=== PATIENT | male | born 1955 | race Caucasian/White ===

== ENCOUNTER 2021-07-08 10:20 | Outpatient (CLI) | payer MEDICARE | END 2021-07-08 10:21 | disposition home or self-care (01) | LOC: BICRAD 10:20 | PROVIDERS: ATTEND Family Medicine | DX: M25.512 Pain in left shoulder (principal); M19.012 Primary osteoarthritis, left shoulder ==

== ENCOUNTER 2023-09-12 00:09 | Inpatient (IN) | payer OTHER ==
[2023-09-12 02:43] VITALS: BMI 28.0
[2023-09-12] MEDS ORDERED: Calcium Carbonate 500 MG ChewTAB PO PRN (02:54)
[2023-09-12] MEDS ORDERED: Ondansetron ODT 4 MG TAB PO PRN (02:54)
[2023-09-12] MEDS: Acetaminophen 325 MG TAB PO PRN ×2 (03:14→16:52)
[2023-09-12] MEDS ORDERED: Lactated Ringer's 1,000 ML IV SCH (03:15)
[2023-09-12] MEDS ORDERED: Piperacillin/Tazobactam 3.375 GM in Sodium Chloride 0.9% 100 ML IVPB SCH (03:30)
[2023-09-12] MEDS ORDERED: Lactated Ringer's 500 ML IV SCH (03:30)
[2023-09-12] MEDS ORDERED: Dextrose 5% in Water 1,000 ML IV PRN (04:00)
[2023-09-12] MEDS ORDERED: Dextrose 50% Abboject 50 ML SYRINGE SLOW IVP PRN (04:00)
[2023-09-12] MEDS ORDERED: Glucagon 1 MG/ML KIT IM PRN (04:00)
[2023-09-12] MEDS ORDERED: HumaLOG 300 UNITS/3 ML VIAL SC PRN ×2 (04:00)
[2023-09-12 05:41] LABS: #Monocytes 0.3 thou/uL (0.11-0.59); #Neutrophils 9.6 thou/uL (1.40-6.50); %Basophils 0.1 % (0.0-1.0); %Lymphocytes 7.3 % (21.0-51.0); %Monocytes 3.1 % (0.0-10.0); %Neutrophils 88.9 % (42.0-75.0); Hematocrit 32.5 % (42.0-52.0); Hemoglobin 10.8 g/dL (14.0-18.0); Mean Corpuscular HGB CONC 33.2 g/dL (32.0-36.0); Mean Corpuscular Hemoglobin 28.6 pg (27.0-31.0); Mean Corpuscular Volume 86.2 fl (78.0-98.0); Mean Platelet Volume 11.7 fL (7.4-10.4); Platelet Count 132 10x3/uL (130-400); RBC Distribution Width 15.5 % (11.5-14.5); Red Blood Cell (RBC) Count 3.77 mill/uL (4.70-6.10); White Blood Cell (WBC) Count 10.8 10x3/uL (4.8-10.8)
[2023-09-12 05:45] LABS: Anion Gap 14 mmol/L (10-20); BUN (Urea Nitrogen) 12 mg/dL (8.4-25.7); Calc. Creatinine Clearance 100 mL/min (70-130); Carbon Dioxide 25 mmol/L (23-31); Chloride 102 mmol/L (98-107); Estimated GFR 84; Glucose 133 mg/dL (80-115); Potassium 3.5 mmol/L (3.5-5.1); Sodium 137 mmol/L (136-145)
[2023-09-12 05:57] LABS: Lactic Acid 1.6 mmol/L (0.5-2.2)
[2023-09-12 05:59] LABS: Troponin I 0.066 ng/mL (< 0.028)
[2023-09-12] MEDS ORDERED: Piperacillin/Tazobactam 4.5 GM in Sodium Chloride 0.9% 100 ML IVPB SCH (06:00)
[2023-09-12] MEDS: Vancomycin 1 GM in Premix 1 BAG IVPB SCH ×2 (06:19→17:40)
[2023-09-12 08:41] LABS: Troponin I 0.057 ng/mL (< 0.028)
[2023-09-12] MEDS: Gemfibrozil 600 MG TAB PO SCH ×2 (08:48→20:59)
[2023-09-12] MEDS: Furosemide 20 MG TAB PO SCH (08:48)
[2023-09-12] MEDS: DULoxetine 60 MG CAP PO SCH (08:48)
[2023-09-12] MEDS: risperiDONE 0.25 MG TAB PO SCH (08:48)
[2023-09-12] MEDS: Multivit, Therapeutic 1 TAB PO SCH (08:49)
[2023-09-12] MEDS: Aspirin Chewable 81 MG TAB PO SCH (08:49)
[2023-09-12] MEDS: metFORMIN 500 MG TAB PO SCH ×2 (08:49→20:59)
[2023-09-12] MEDS: Gabapentin 300 MG CAP PO SCH ×3 (08:50→20:59)
[2023-09-12] MEDS: Piperacillin/Tazobactam 3.375 GM in Sodium Chloride 0.9% 100 ML IVPB SCH ×2 (08:50→15:04)
[2023-09-12] MEDS: Famotidine 20 MG TAB PO SCH ×2 (08:50→20:59)
[2023-09-12] MEDS: CO Q-10 CAPSULE 50 MG PO SCH (08:59)
[2023-09-12] MEDS ORDERED: rOPINIRole HCl 0.5 MG TAB PO SCH (09:00)
[2023-09-12] MEDS ORDERED: Vancomycin (BATCH) 1.5 GM in Premix 1 BAG IVPB SCH (09:00)
[2023-09-12] MEDS ORDERED: Midodrine HCl 5 MG TAB PO SCH (10:00)
[2023-09-12] MEDS: Midodrine HCl 5 MG TAB PO SCH ×2 (15:04→20:58)
[2023-09-12] MEDS: rOPINIRole HCl 0.5 MG TAB PO SCH ×2 (15:04→20:58)
[2023-09-12] MEDS: Atorvastatin Calcium 20 MG TAB PO SCH (20:59)
[2023-09-13] MEDS: Piperacillin/Tazobactam 3.375 GM in Sodium Chloride 0.9% 100 ML IVPB SCH ×4 (00:41→23:19)
[2023-09-13 06:04] LABS: #Eosinphils 0.1 thou/uL (0.0-0.7); #Monocytes 0.8 thou/uL (0.11-0.59); #Neutrophils 6.6 thou/uL (1.40-6.50); %Basophils 0.4 % (0.0-1.0); %Lymphocytes 17.4 % (21.0-51.0); %Monocytes 8.9 % (0.0-10.0); Hematocrit 34.4 % (42.0-52.0); Hemoglobin 11.3 g/dL (14.0-18.0); Mean Corpuscular HGB CONC 32.8 g/dL (32.0-36.0); Mean Corpuscular Hemoglobin 28.4 pg (27.0-31.0); Mean Corpuscular Volume 86.4 fl (78.0-98.0); Platelet Count 135 10x3/uL (130-400); RBC Distribution Width 15.8 % (11.5-14.5); Red Blood Cell (RBC) Count 3.98 mill/uL (4.70-6.10); White Blood Cell (WBC) Count 9.2 10x3/uL (4.8-10.8)
[2023-09-13 06:09] LABS: Vancomycin, Trough 8.6 ug/mL
[2023-09-13 06:27] LABS: Anion Gap 14 mmol/L (10-20); BUN (Urea Nitrogen) 16 mg/dL (8.4-25.7); CRP (Inflammatory) 27.42 mg/dL (= or < 0.5); Calc. Creatinine Clearance 98 mL/min (70-130); Carbon Dioxide 26 mmol/L (23-31); Chloride 100 mmol/L (98-107); Estimated GFR 82; Glucose 133 mg/dL (80-115); Magnesium 1.7 mg/dL (1.6-2.6); Potassium 3.7 mmol/L (3.5-5.1); Sodium 136 mmol/L (136-145)
[2023-09-13] MEDS ORDERED: Vancomycin (BATCH) 1.5 GM in Premix 1 BAG IVPB SCH (06:30)
[2023-09-13] MEDS: CO Q-10 CAPSULE 50 MG PO SCH (08:40)
[2023-09-13] MEDS: Gabapentin 300 MG CAP PO SCH ×3 (08:41→20:55)
[2023-09-13] MEDS: Furosemide 20 MG TAB PO SCH (08:41)
[2023-09-13] MEDS: Famotidine 20 MG TAB PO SCH ×2 (08:41→20:54)
[2023-09-13] MEDS: DULoxetine 60 MG CAP PO SCH (08:41)
[2023-09-13] MEDS: Potassium Chloride 10 MEQ TAB PO SCH (08:41)
[2023-09-13] MEDS: metFORMIN 500 MG TAB PO SCH ×2 (08:41→20:55)
[2023-09-13] MEDS: risperiDONE 0.25 MG TAB PO SCH (08:41)
[2023-09-13] MEDS: Gemfibrozil 600 MG TAB PO SCH ×2 (08:41→20:55)
[2023-09-13] MEDS: rOPINIRole HCl 0.5 MG TAB PO SCH ×3 (08:41→20:55)
[2023-09-13] MEDS: Aspirin Chewable 81 MG TAB PO SCH (08:41)
[2023-09-13] MEDS: Multivit, Therapeutic 1 TAB PO SCH (08:41)
[2023-09-13] MEDS: Midodrine HCl 5 MG TAB PO SCH ×3 (08:45→20:54)
[2023-09-13] MEDS ORDERED: Diazepam 10 MG/2 ML SYRINGE IVP PRN ×2 (09:00→11:55)
[2023-09-13] MEDS: Vancomycin 1 GM in Premix 1 BAG IVPB SCH (14:48)
[2023-09-13] MEDS: Vancomycin (BATCH) 1.5 GM in Premix 1 BAG IVPB SCH (18:32)
[2023-09-13] MEDS: Atorvastatin Calcium 20 MG TAB PO SCH (20:54)
[2023-09-14] MEDS: Vancomycin (BATCH) 1.5 GM in Premix 1 BAG IVPB SCH ×2 (05:37→17:45)
[2023-09-14 06:19] LABS: #Eosinphils 0.4 thou/uL (0.0-0.7); #Monocytes 0.7 thou/uL (0.11-0.59); #Neutrophils 3.6 thou/uL (1.40-6.50); %Basophils 0.4 % (0.0-1.0); %Eosinophils 6.2 % (0.0-10.0); %Lymphocytes 28.7 % (21.0-51.0); %Monocytes 10.5 % (0.0-10.0); %Neutrophils 53.9 % (42.0-75.0); Hematocrit 33.6 % (42.0-52.0); Hemoglobin 10.9 g/dL (14.0-18.0); Mean Corpuscular HGB CONC 32.4 g/dL (32.0-36.0); Mean Corpuscular Hemoglobin 27.7 pg (27.0-31.0); Mean Corpuscular Volume 85.5 fl (78.0-98.0); Mean Platelet Volume 11.8 fL (7.4-10.4); Platelet Count 139 10x3/uL (130-400); RBC Distribution Width 15.5 % (11.5-14.5); Red Blood Cell (RBC) Count 3.93 mill/uL (4.70-6.10); White Blood Cell (WBC) Count 6.8 10x3/uL (4.8-10.8)
[2023-09-14 06:42] LABS: Anion Gap 15 mmol/L (10-20); BUN (Urea Nitrogen) 15 mg/dL (8.4-25.7); Calc. Creatinine Clearance 111 mL/min (70-130); Carbon Dioxide 25 mmol/L (23-31); Chloride 100 mmol/L (98-107); Estimated GFR 93; Glucose 128 mg/dL (80-115); Potassium 3.8 mmol/L (3.5-5.1); Sodium 136 mmol/L (136-145)
[2023-09-14] MEDS: Piperacillin/Tazobactam 3.375 GM in Sodium Chloride 0.9% 100 ML IVPB SCH ×3 (08:44→23:18)
[2023-09-14] MEDS: Midodrine HCl 5 MG TAB PO SCH ×3 (08:45→19:58)
[2023-09-14] MEDS: rOPINIRole HCl 0.5 MG TAB PO SCH ×3 (08:45→19:58)
[2023-09-14] MEDS: Potassium Chloride 10 MEQ TAB PO SCH (08:46)
[2023-09-14] MEDS: Famotidine 20 MG TAB PO SCH ×2 (08:46→19:58)
[2023-09-14] MEDS: Gabapentin 300 MG CAP PO SCH ×3 (08:46→19:58)
[2023-09-14] MEDS: Furosemide 20 MG TAB PO SCH (08:46)
[2023-09-14] MEDS: risperiDONE 0.25 MG TAB PO SCH (08:46)
[2023-09-14] MEDS: Multivit, Therapeutic 1 TAB PO SCH (08:46)
[2023-09-14] MEDS: DULoxetine 60 MG CAP PO SCH (08:46)
[2023-09-14] MEDS: Aspirin Chewable 81 MG TAB PO SCH (08:46)
[2023-09-14] MEDS: metFORMIN 500 MG TAB PO SCH ×2 (08:46→19:58)
[2023-09-14] MEDS: Gemfibrozil 600 MG TAB PO SCH ×2 (08:47→19:58)
[2023-09-14] MEDS: CO Q-10 CAPSULE 50 MG PO SCH (08:53)
[2023-09-14 17:55] LABS: Vancomycin, Trough 16.9 ug/mL
[2023-09-14] MEDS: Atorvastatin Calcium 20 MG TAB PO SCH (19:58)
[2023-09-15] MEDS: Vancomycin (BATCH) 1.5 GM in Premix 1 BAG IVPB SCH (05:41)
[2023-09-15 07:51] VITALS: TEMP 98.4
[2023-09-15] MEDS: Aspirin Chewable 81 MG TAB PO SCH (08:53)
[2023-09-15] MEDS: Potassium Chloride 10 MEQ TAB PO SCH (08:53)
[2023-09-15] MEDS: Famotidine 20 MG TAB PO SCH (08:53)
[2023-09-15] MEDS: metFORMIN 500 MG TAB PO SCH (08:53)
[2023-09-15] MEDS: risperiDONE 0.25 MG TAB PO SCH (08:53)
[2023-09-15] MEDS: Furosemide 20 MG TAB PO SCH (08:53)
[2023-09-15] MEDS: Multivit, Therapeutic 1 TAB PO SCH (08:53)
[2023-09-15] MEDS: Midodrine HCl 5 MG TAB PO SCH (08:53)
[2023-09-15] MEDS: DULoxetine 60 MG CAP PO SCH (08:53)
[2023-09-15] MEDS: Gemfibrozil 600 MG TAB PO SCH (08:53)
[2023-09-15] MEDS: rOPINIRole HCl 0.5 MG TAB PO SCH (08:54)
[2023-09-15] MEDS: Gabapentin 300 MG CAP PO SCH (08:54)
[2023-09-15] MEDS: Piperacillin/Tazobactam 3.375 GM in Sodium Chloride 0.9% 100 ML IVPB SCH (08:54)
[2023-09-15] MEDS: CO Q-10 CAPSULE 50 MG PO SCH (08:55)
[2023-09-15 12:01] LABS: #Eosinphils 0.5 thou/uL (0.0-0.7); #Monocytes 0.7 thou/uL (0.11-0.59); #Neutrophils 5.6 thou/uL (1.40-6.50); %Basophils 0.3 % (0.0-1.0); %Eosinophils 5.4 % (0.0-10.0); %Lymphocytes 21.4 % (21.0-51.0); %Monocytes 7.6 % (0.0-10.0); %Neutrophils 65.1 % (42.0-75.0); Hematocrit 34.4 % (42.0-52.0); Hemoglobin 11.2 g/dL (14.0-18.0); Mean Corpuscular HGB CONC 32.6 g/dL (32.0-36.0); Mean Corpuscular Hemoglobin 28.1 pg (27.0-31.0); Mean Corpuscular Volume 86.4 fl (78.0-98.0); Platelet Count 194 10x3/uL (130-400); RBC Distribution Width 15.1 % (11.5-14.5); Red Blood Cell (RBC) Count 3.98 mill/uL (4.70-6.10); White Blood Cell (WBC) Count 8.7 10x3/uL (4.8-10.8)
[2023-09-15 12:11] VITALS: BP 117/66
[2023-09-15 12:17] LABS: Anion Gap 17 mmol/L (10-20); BUN (Urea Nitrogen) 13 mg/dL (8.4-25.7); Calc. Creatinine Clearance 103 mL/min (70-130); Calcium 9.5 mg/dL (7.8-10.44); Carbon Dioxide 27 mmol/L (23-31); Chloride 98 mmol/L (98-107); Estimated GFR 87; Glucose 119 mg/dL (80-115); Potassium 3.7 mmol/L (3.5-5.1); Sodium 138 mmol/L (136-145)
== END 2023-09-15 13:33 | disposition home or self-care (01) | DRG 872 ==
LOC: 2NO 02:24 → OBSVTOIN 09:40 → T4-B 09-13 18:45
PROVIDERS: ADMIT Student in an Organized Health Care Education/Training Program; ATTEND Hospitalist
DX: A41.9 Sepsis, unspecified organism (principal); S12.100A Unspecified displaced fracture of second cervical vertebra, initial encounter for closed fracture; S22.43XA Multiple fractures of ribs, bilateral, initial encounter for closed fracture; I48.92 Unspecified atrial flutter; I95.1 Orthostatic hypotension; Z79.899 Other long term (current) drug therapy; Z79.84 Long term (current) use of oral hypoglycemic drugs; J43.9 Emphysema, unspecified; Z96.653 Presence of artificial knee joint, bilateral; Z98.890 Other specified postprocedural states; Z79.82 Long term (current) use of aspirin; E11.621 Type 2 diabetes mellitus with foot ulcer; L97.529 Non-pressure chronic ulcer of other part of left foot with unspecified severity; G25.81 Restless legs syndrome; E11.42 Type 2 diabetes mellitus with diabetic polyneuropathy; K21.9 Gastro-esophageal reflux disease without esophagitis; W06.XXXA Fall from bed, initial encounter
CPT/HCPCS: 36415; 36416; 71045; 80048; 80053; 80202; 81001; 83605; 83735; 83880; 84484; 85025; 86140; 87040; 93005; 93010; 94760; 96361; 96365; 96366; 96367; 96374; 96375; 96376; 97139; G0378; J0692; J2543; J3360; J3370; J3370-JW; J3475; J3490; J7120